=== PATIENT | male | born 1990 | race Caucasian/White ===

== ENCOUNTER 2017-09-12 05:37 | Outpatient (CLI) | payer SELFPAY ==
[~2017-09-12] VITALS: Ht 180.3 cm; Wt 72.6 kg
[2017-09-13] MEDS ORDERED: ACHD5005 PO (09:08)
== END 2017-09-12 12:43 ==
LOC: PREOP 05:37
PROVIDERS: ATTEND Surgery
DX: Z01.818 Encounter for other preprocedural examination (principal); K40.90 Unilateral inguinal hernia, without obstruction or gangrene, not specified as recurrent

== ENCOUNTER 2017-09-13 06:05 | Day surgery (SDC) | payer BC, OTHER ==
[~2017-09-13] VITALS: Ht 180.3 cm; Wt 72.6 kg
[2017-09-13 06:15] VITALS: BP 128/77
[2017-09-13] MEDS ORDERED: SEVOFLURANE (ULTANE) 15 ML INHAL SOLN ONE ×3 (06:22→09:47)
[2017-09-13] MEDS ORDERED: DEXAMETHASONE 10 MG/ML (DECADRON) 1 ML VIAL ONE (06:22)
[2017-09-13] MEDS ORDERED: MIDAZOLAM 2 MG/2 ML (VERSED) VIAL ONE (06:22)
[2017-09-13] MEDS ORDERED: ONDANSETRON 4 MG/2 ML (SDV) Z0FRAN ONE (06:22)
[2017-09-13] MEDS ORDERED: LIDOCAINE PF 2% 5 ML (XYLOCAINE) VIAL ONE (06:22)
[2017-09-13] MEDS ORDERED: proPOfol 200 MG/20 ML (DIPRIVAN) VIAL IV ONE (06:22)
[2017-09-13] MEDS ORDERED: fentaNYL INJECTION 100 MCG/2 ML AMP ONE ×2 (06:22→08:13)
[2017-09-13] MEDS ORDERED: ROCURONIUM 10 MG/ML 5 ML SYRINGE IV ONE ×2 (06:32→08:12)
[2017-09-13 06:39] LABS: BASOPHILS % (AUTO) 0 % (0-10); EOSINOPHILS # (AUTO) 0.2 10^3/uL (0.0-0.3); EOSINOPHILS % (AUTO) 3 % (0-10); HEMATOCRIT 44 % (40-54); HEMOGLOBIN 15.5 G/DL (13.3-17.7); LYMPHOCYTES # (AUTO) 2.2 X 10^3 (1.0-4.0); LYMPHOCYTES % (AUTO) 41 % (12-44); MEAN CORPUSCULAR HEMOGLOBIN 30 PG (25-34); MEAN CORPUSCULAR HGB CONC 35 G/DL (32-36); MEAN CORPUSCULAR VOLUME 86 FL (80-99); MEAN PLATELET VOLUME 10.2 FL (7.4-10.4); MONOCYTES # (AUTO) 0.6 X 10^3 (0.0-1.0); MONOCYTES % (AUTO) 10 % (0-12); NEUTROPHILS # (AUTO) 2.5 X 10^3 (1.8-7.8); NEUTROPHILS % (AUTO) 45 % (42-75); PLATELET COUNT 255 10^3/uL (130-400); RED CELL DISTRIBUTION WIDTH 12.9 % (10.0-14.5); WHITE BLOOD COUNT 5.4 10^3/uL (4.3-11.0)
[2017-09-13] MEDS ORDERED: ceFAZolin 1 GM/NS 100 ML IVPB IV ONE ×2 (06:45)
[2017-09-13] MEDS ORDERED: CATHETER FLUSH 10 ML SYR IV PRN (06:45)
[2017-09-13] MEDS ORDERED: BUP/EPI 0.5% 1:200,000 (SENSORCAINE) 30 ML VIAL ONE (06:47)
[2017-09-13] MEDS ORDERED: ONDANSETRON 4 MG/2 ML (SDV) Z0FRAN IV ONE (07:00)
--- NOTE | 2017-09-13 07:38 | Progress Note-Pre Operative ---
Pre-Operative Progress Note H&P Reviewed The H&P was reviewed, patient examined and no changes noted. Date Seen by Provider: September 05, 2017 Time Seen by Provider: 11:25 Date H&P Reviewed: September 13, 2017 Time H&P Reviewed: 07:38 Pre-Operative Diagnosis: Left inguinal hernia GLEN JEFFERSON MD September 13, 2017 7:38 am
[2017-09-13] MEDS: LACTATED RINGERS 1,000 ML IV PRN ×2 (07:40→08:25)
[2017-09-13] MEDS ORDERED: NEOSTIGMINE 1 MG/ML 5 ML SYRINGE ONE (08:53)
[2017-09-13] MEDS ORDERED: GLYCOPYRROLATE 0.2 MG/ML (ROBINUL) 2 ML VIAL ONE (08:53)
[2017-09-13] MEDS ORDERED: ACHD5005 PO (09:08)
--- NOTE | 2017-09-13 09:08 | Operative Report ---
Operative Report Date of Procedure/Surgery September 13, 2017 Surgeon (s) GLEN JEFFERSON MD Senior Master Scheduler (s): n/a Post-Operative Diagnosis Same Procedure Performed Robotic assisted repair with mesh Description of Procedure Anesthesia Type: General Estimated blood loss (mL): Minimal Specimen(s) collected/removed None Description of the Procedure Indication for the procedure: This gentleman presented with a symptomatically, small left inguinal hernia. He was offered repair using minimally invasive technique with the robotic assistance and reinforcement with mesh. Informed consent was obtained after reviewing the operative details and complications of hematoma, infection of the mesh and recurrence of the hernia. Description of the procedure: He was placed supine on the operative table and general anesthesia induced. A gram of Ancef was administered intravenously as prophylaxis against wound infection. Sequential compression devices were placed around his legs, to minimize the risk of venous thrombosis. A Adan catheter was placed to decompress the bladder during surgery. It was removed at the end of the operation. Abdomen was prepared and draped in the usual sterile manner. Pneumoperitoneum was established using a Veress needle introduced through the umbilicus itself. A 12 mm trocar was placed and anatomy visualized 30, high definition laparoscope associated with da Ramírez system. A small direct hernia was encountered. Under direct view, I placed an 8 mm trocar over each side of the abdomen the patient was turned into steep Trendelenburg position, to displace loops of bowel out of the pelvis. The robotic system was then in place. Peritoneum was incised laterally, entering the pre-peritoneal space. Dissection was continued medially, displaying Shayan's ligament. Extraperitoneal fat, constituting the direct hernia was reduced out of the inguinal canal. There was no indirect sac. A polypropylene mesh, pre-shape to fit into the preperitoneal space measuring 10 x 8 cm was chosen for reinforcement. It was secured to Shayan's ligament and the lateral abdominal muscles with 20V LOC sutures, using robotic assistance. The intra-abdominal pressure was then reduced to 12 mmHg, to facilitate closing the peritoneum without TENSION. Was achieved using a 20V LOC suture with robotic assistance. The trocars were removed and the fascia over the umbilical incision was closed using #1 Vicryl. Skin incisions were closed using 4-0 Vicryl, in a subcuticular fashion. 0.5 percent Marcaine with epinephrine was infiltrated along the incisions, both preemptively and at the conclusion of the operation. The procedure well, was extubated in the operating room and taken to the recovery room in a stable condition. Findings of the Procedure sEE OP REPORT Allergies and Home Medications Allergies Coded Allergies: No Known Drug Allergies (Unverified , 09/12/17) Home Medications No Active Prescriptions or Reported Meds Patient Home Medication List Home Medication List Reviewed: Yes GLNE JEFFERSON MD September 13, 2017 9:08 am
[2017-09-13] MEDS ORDERED: ROPIVACAINE 5MG/ML 30ML VIAL ONE ×2 (09:09→09:34)
--- NOTE | 2017-09-13 09:09 | Discharge Inst-Simple/Standard ---
Discharge Inst-Standard Discharge Medications New, Converted or Re-Newed RX: RX on Chart Patient Instructions/Follow Up Plan of Care/Instructions/FU: Band-Aids off in 48 hours. Follow-up in 3 weeks Activity as Tolerated: No Goal: No lifting or pushing over 10 pounds Discharge Diet: No Restrictions GLEN JEFFERSON MD September 13, 2017 9:09 am
[2017-09-13] MEDS ORDERED: morphine INJ 10 MG/ML 1ML (SYR OR VIAL) ONE (09:36)
[2017-09-13] MEDS ORDERED: MEPERIDINE (DEMEROL) INJ 50 MG/ML ONE (09:40)
[2017-09-13] MEDS: MEPERIDINE (DEMEROL) INJ 50 MG/ML IVP PRN ×2 (09:45→10:00)
[2017-09-13] MEDS ORDERED: morphine INJ 10 MG/ML 1ML (SYR OR VIAL) IVP PRN (09:45)
[2017-09-13] MEDS ORDERED: ONDANSETRON 4 MG/2 ML (SDV) Z0FRAN IVP PRN (09:45)
--- NOTE | 2017-09-13 10:27 | Anesthesia-General Post-Op ---
General Patient Condition Mental Status/LOC: Same as Preop Cardiovascular: Satisfactory Nausea/Vomiting: Absent Respiratory: Satisfactory Pain: Controlled Complications: Absent Post Op Complications Complications None Follow Up Care/Instructions Patient Instructions None needed. Anesthesia/Patient Condition Patient Condition Patient is doing well, no complaints, stable vital signs, no apparent adverse anesthesia problems. No complications reported per nursing. TONY RAMAN CRNA September 13, 2017 10:27
[2017-09-13 10:45] VITALS: BP 111/63
[2017-09-13 10:46] VITALS: BP 111/63
[2017-09-13] MEDS ORDERED: HYDROcodone/APAP 5 MG/325 MG (LORTAB) TAB ONE (11:02)
[2017-09-13 11:15] VITALS: BP 106/62
[2017-09-13] MEDS ORDERED: HYDROcodone/APAP 5 MG/325 MG (LORTAB) TAB PO ONE (11:15)
[2017-09-13 11:45] VITALS: BP 100/56
== END 2017-09-13 12:10 | disposition home or self-care (01) ==
LOC: SDC 06:05
PROVIDERS: ATTEND Surgery
DX: K40.90 Unilateral inguinal hernia, without obstruction or gangrene, not specified as recurrent (principal); Z11.2 Encounter for screening for other bacterial diseases
CPT/HCPCS: 36415; 85025; 87081

== ENCOUNTER → 2022-10-04 | Outpatient (CLI) | payer SELFPAY ==
[~2022-10-04] MED LIST: ACHD5005 PO
--- NOTE | 2022-10-04 16:31 | Diagnostic Imaging Report ---
INDICATION: Family history of heart disease. TECHNIQUE: CT coronary calcium study performed without IV contrast. Noncontrast images of the heart are obtained with calculation of cardiac score. Dose reduction protocol was used. FINDINGS: Visualized portions of the mediastinum show no adenopathy. There is no pleural or pericardial fluid. Visualized portions of the lung solomon are clear, the entirety of the lungs are not included on the study. No significant coronary artery calcium is seen. Coronary calcium score was 0. IMPRESSION: CT coronary calcium score was 0. Dictated by: Dictated on workstation # [id number]
== END ==
LOC: RAD 13:13
PROVIDERS: ATTEND Internal Medicine
DX: Z13.6 Encounter for screening for cardiovascular disorders (principal); Z82.49 Family history of ischemic heart disease and other diseases of the circulatory system
CPT/HCPCS: 75571